=== PATIENT | male | born 1950 | race Caucasian/White ===

== ENCOUNTER → 2023-04-08 06:20 | Day surgery (SDC) | payer MEDICARE, OTHER, SELFPAY ==
[2023-04-08 07:26] LABS: Glucose - Point of Care 153 mg/dl (70-99)
== END ==
LOC: GI 06:20
PROVIDERS: ATTENDING PHYSICIAN Internal Medicine; FAMILY PHYSICIAN Nurse Practitioner Primary Care
DX: Z12.11 Encounter for screening for malignant neoplasm of colon (principal); K63.5 Polyp of colon; K57.30 Diverticulosis of large intestine without perforation or abscess without bleeding; Z86.010 Personal history of colon polyps
CPT/HCPCS: 45385; 88305; 82962

== ENCOUNTER → 2023-07-25 06:53 | Outpatient (REF) | payer MEDICARE, OTHER, SELFPAY | LOC: RCS 06:53 | PROVIDERS: ATTENDING PHYSICIAN Nurse Practitioner Primary Care | DX: I10 Essential (primary) hypertension (principal); E78.2 Mixed hyperlipidemia | CPT/HCPCS: 93005 ==

== ENCOUNTER → 2023-08-01 09:38 | Outpatient (REF) | payer MEDICARE, OTHER, SELFPAY | LOC: HWRAD 09:38 | PROVIDERS: ATTENDING PHYSICIAN Nurse Practitioner Primary Care | DX: E78.2 Mixed hyperlipidemia (principal); Z86.73 Personal history of transient ischemic attack (TIA), and cerebral infarction without residual deficits; G45.9 Transient cerebral ischemic attack, unspecified | CPT/HCPCS: 93880 ==

== ENCOUNTER → 2023-08-19 14:49 | Outpatient (REF) | payer MEDICARE, OTHER, SELFPAY | LOC: RCS 14:49 | PROVIDERS: ATTENDING PHYSICIAN Nurse Practitioner Primary Care | DX: E11.42 Type 2 diabetes mellitus with diabetic polyneuropathy (principal); I10 Essential (primary) hypertension; E78.2 Mixed hyperlipidemia; R06.09 Other forms of dyspnea | CPT/HCPCS: 93306 ==

== ENCOUNTER → 2023-08-25 08:16 | Outpatient (REF) | payer MEDICARE, OTHER, SELFPAY | LOC: RCS 08:16 | PROVIDERS: ATTENDING PHYSICIAN Nurse Practitioner Primary Care | DX: E11.42 Type 2 diabetes mellitus with diabetic polyneuropathy (principal); I10 Essential (primary) hypertension; E78.2 Mixed hyperlipidemia; R06.09 Other forms of dyspnea | CPT/HCPCS: 93017; 93350 ==

== ENCOUNTER 2024-10-05 08:52 | Emergency (ER) | payer MEDICARE, OTHER, SELFPAY ==
[2024-10-05 08:54] VITALS: BP 151/83
--- NOTE | 2024-10-05 09:18 | ED.GENMED ---
History of Present Illness
General
Chief Complaint: Skin Problem
Source: patient
Exam Limitations: none
Time Seen by Provider: 10/05/24 09:00
Nursing documentation reviewed up to this point in time: agreed with
History of Present Illness
History of Present Illness:
74 yr old male presents to the ER for complaints of laceration to right anterior lower leg. He cut his right lower leg on shower faucet 5 d ago and has had intermittent bleeding since. He is on 325 mg aspirin every day. Hi last tetanus was 3
years ago. He denies any bony pain.
Past History
Past History
ED Past Medical History: CVA, Hypercholesterolemia and IDDM
ED Past Surgical History: Orthopedic
Social History
Tobacco: Former smoker
Alcohol: Daily
Phy Exam
General Physical Exam
General Presentation: no apparent distress
General age: appears stated age
General Skin: warm and dry
General Habitus: normal
General Mental: alert
General Hydration: appears well hydrated
Neurological Exam
Neurological Exam: alert and oriented x3
Musculoskeletal Exam
Musculoskeletal Exam: full ROM and other (Patient small abrasion to right anterior lower leg no active bleeding no bony tenderness)
Skin Exam
Skin Exam: normal color and warm/dry
Psychiatric Exam
Psychiatric Exam: normal mood/affect
Course
Vital Signs
Initial and Last Documented VS:
Initial Vital Signs
Temp Pulse Resp BP Pulse Ox
98.3 F 76 17 151/83 99
10/05/24 08:54 10/05/24 08:54 10/05/24 08:54 10/05/24 08:54 10/05/24 08:54
Last Documented Vital Signs
Temp Pulse Resp BP Pulse Ox
98.3 F 76 17 151/83 99
10/05/24 08:54 10/05/24 08:54 10/05/24 08:54 10/05/24 08:54 10/05/24 09:20
MDM/Problems Addressed
Differential Diagnosis Includes:
Not limited to abrasion
MDM/Problems Addressed:
Simple abrasion to right anterior lower leg no active bleeding. I did clean this with the normal saline applied antibx ointnent and non stick dressing.
Discussed wound care
*Pulse Oximetry
SaO2: 99
Oxygen Mode of Delivery: Room air
Patient hypoxic: no
*Critical Care Note
Total Time (30-74mins, 75-104mins- exclusive of procedures): Not Applicable
ED Attending Note
-
Portions of this chart may have been created with voice recognition software.� Occasional wrong word or��sound alike� substitutions may have occurred due to the inherent limitations of voice recognition software.
Discharge Plan
Departure
Patient Disposition: Home (Routine Discharge)
Date of Disposition: 10/05/24
Time of Disposition: 09:13
Patient with high blood pressure during this ER visit?: Yes
Condition: Good
Covid-19: Not Applicable
Discharge Problem:
Abrasion of skin
Instructions: Abrasions - ED discharge instructions
Prescriptions:
No Action
atorvastatin 20 MG tablet
20 mg PO QPM
aspirin 325 MG tablet,delayed release (DR/EC)
325 mg PO DAILY
tamsulosin 0.4 MG capsule
0.4 mg PO BID
cyanocobalamin (vitamin B-12) 1,000 MCG/ML solution
1,000 mcg IM MONTHLY
insulin aspart U-100 [Novolog FlexPen U-100 Insulin] 300 UNITS/3 ML insulin pen
35 units SC DAILY
insulin aspart U-100 [Novolog FlexPen U-100 Insulin] 300 UNITS/3 ML insulin pen
55 units SC QPM
cinnamon bark [Cinnamon] 500 MG capsule
500 mg PO BID
polyvinyl alcohol [Artificial Tears (polyvin alc)] 15 ML drops
1 drp BOTH EYES PRN PRN (Reason: dry eyes)
tadalafil [Cialis] 5 MG tablet
5 mg PO DAILY
icosapent ethyl [Vascepa] 1 GM capsule
2 gm PO BID
repaglinide 0.5 MG tablet
0.5 mg PO DAILY
pantoprazole 40 MG tablet,delayed release (DR/EC)
40 mg PO DAILY
lisinopril 5 MG tablet
5 mg PO DAILY
Activity Restrictions/Additional Instructions:
Keep wound clean and dry for 24 hours after 24 hours wash twice a day with soap water pat dry apply small layer of antibiotic ointment to the area. Do wound care twice a day. See your family doctor as needed. Return if any signs infection of
increased pain swelling redness drainage fever chills.
Interventions
Interventions:
*Risk Screen - Suicide Last Done: 10/05/24 08:56
*General Assessment Last Done: 10/05/24 08:56
*Neglect/Abuse Screening Last Done: 10/05/24 08:56
*ED COVID-19 Vaccine History Last Done: 10/05/24 08:56
*Nursing Disposition Last Done: 10/05/24 09:36
ED-Skin Assessment Last Done: 10/05/24 09:17
Discharge Date and Time
Discharge Date/Time: 10/05/24 09:36
Print Language: INDONESIAN
== END 2024-10-05 09:36 | disposition home or self-care (01) ==
LOC: EMR 08:52
PROVIDERS: EMERGENCY PHYSICIAN Emergency Medicine; FAMILY PHYSICIAN Nurse Practitioner Primary Care
DX: S80.811A Abrasion, right lower leg, initial encounter (principal); X58.XXXA Exposure to other specified factors, initial encounter; Z23 Encounter for immunization; E78.00 Pure hypercholesterolemia, unspecified; E11.9 Type 2 diabetes mellitus without complications; Z79.82 Long term (current) use of aspirin; Z86.73 Personal history of transient ischemic attack (TIA), and cerebral infarction without residual deficits; Z87.891 Personal history of nicotine dependence
CPT/HCPCS: 99282; 90471